=== PATIENT | female | born 1985 | race Caucasian/White ===

== ENCOUNTER 2021-08-07 21:20 | Inpatient (IN) ==
[2021-08-07] MEDS ORDERED: LACTATED RINGER'S 1,000 ML IV PRN (21:34)
[2021-08-07] MEDS ORDERED: OXYTOCIN 30 UNITS/500 ML BAG IV PRN (21:34)
[2021-08-07 21:59] LABS: Hematocrit (blood only) 36.5 % (37-47); Hemoglobin 12.9 g/dL (12.0-16.0); Mean Corpuscular Hemoglobin 31.7 pg (25-34); Mean Corpuscular Hgb Conc 35.3 g/dL (32-36); Mean Corpuscular Volume 89.7 fL (80-100); Mean Platelet Volume 11.5 fL (7.4-10.4); Platelet Count 183 K/uL (130-400); RDW Coefficient of Variation 13.4 % (11.5-14.5); RDW Standard Deviation 43.9 fL (36.4-46.3); Red Blood Count 4.07 M/uL (4.2-5.4); White Blood Count 14.67 K/uL (4.8-10.8)
[2021-08-07] MEDS ORDERED: CALCIUM CARBONATE 500 MG CHEWABLE TAB PO PRN (22:50)
[2021-08-07] MEDS ORDERED: ONDANSETRON INJ 2 MG/ML 2 ML VIAL IV PRN (22:50)
[2021-08-07] MEDS ORDERED: DINOPROSTONE 10 MG INSERT PV ONE (22:50)
--- NOTE | 2021-08-07 22:54 | History & Physical Report ---
Date of Service August 07, 2021 Assessment & Plan (1) IUGR (intrauterine growth restriction) affecting care of mother: Plan: 36-year-old -0-1-2 at 37 weeks and 3 days of gestation presenting today for induction of labor at term due to IUGR and elevated SD ratio of lumbrical artery Doppler studies, recommended by maternal- medicine at [facility], Vital signs stable afebrile, heart rate reassuring, GBS negative, History of COVID-19 in March, recovered well and currently negative testing, Cervix unfavorable, Plan to admit, monitor, cervical ripening with Cervidil, Patient understands what to expect during induction and all questions were answered. (2) Advanced maternal age (AMA) in : (3) Medication exposure during first trimester of : (4) COVID-19 affecting , antepartum: Admission and Anticipated Discharge Date Admission Date: August 07, 2021 History of Present Illness Primary Care Provider: PT DECLINED Patient is a 36-year-old -0-1-2 at 37 weeks and 3 days of gestation who was sent from [facility] in [place] after her visit to maternal- medicine for growth ultrasound and Doppler studies due to ongoing IUGR. It was noted that SD ratio of the umbilical artery was elevated and recommended ashtyn ction of labor at term either tonight or tomorrow morning. Patient wanted to go home eat take shower and prepare her back and then come tonight. Patient has no complaints. She denies contractions, leakage of fluid, vaginal bleeding. She reports good movements. Patient denies headache, change in her vision, nausea vomiting, epigastric or right upper quadrant pain or leg pain. Her has been complicated by, 1. Advanced maternal age 2. Late care, 3. medication exposure during first trimester, use doxycycline for a month for Lyme disease, 4. COVID-19 affecting , positive on March, covered well at home. 5. IUGR as above, 6. Smoked cigarettes until 17 weeks Allergies Allergy/AdvReac Type Severity Reaction Status Date / Time Sulfa (Sulfonamide Allergy Unknown Rash Verified 08/07/21 21:39 Antibiotics) Home Medications Medication Instructions Recorded Confirmed Type omeprazole 40 mg capsule,delayed 40 mg PO DAILY #30 cap 09/26/19 08/07/21 Rx release vits no.124-ferrous fum 1 tab PO DAILY 08/07/21 08/07/21 History 27 mg iron-folic acid 800 mcg tablet ( Vitamin) Patient History Medical History (Updated 08/07/21 @ 22:59 by Yariel Castro MD) GERD (gastroesophageal reflux disease) Lyme disease 2020 No significant past medical history Pain, dental Surgical History History of oral surgery Social History Smoking Status: Former smoker Tobacco Type: Cigarettes Cigarettes Per Day: 20; Smoking End Date: with + test; Second Hand Exposure: No; Hx Alcohol Use: No Hx Substance Use: No Preferred Language: Finnish Communication Ability: Effective Medical Office Receptionist Required: No Beliefs That Will Affect Care: None marital status: Single Current Living Situation: Family Current Living Situation Comment: 17 year old and 14 year old daughters Other Information That Helps Us Care for You: No Feels Safe at Home: Yes Safety Concerns: Feels Safe At This Time Assistive Devices: Contacts, Denture - Upper and Denture - Lower OB History Full-term STDs in 2004 and 2007, no complications History of 1 [employer] History Denies any history of STDs, denies history of herpes, chlamydia, gonorrhea Review of Systems as per Subjective / HPI Physical Exam Constitutional: WD/WN, vitals as above well developed, well nourished and + thin Comfortable, not in acute distress Genitourinary: normal external appearance OB Exam Abdomen: + vertex Manual OB Exam: + cervical dilation fingertip, + cervical effacement 40% and + station -2 (Cervix is firm) OB Exam Monitor Tracing: + external uterine monitor used and + category I Results & Data ([facility]) Vital Signs (Past 12 Hours) Vital Signs Temp Pulse Resp BP 08/07/21 21:55 36.8 C 82 18 130/81 08/07/21 21:49 36.8 C 82 18 130/81 08/07/21 21:34 92 H 139/96 Laboratory Results Lab Results 08/07/21 08/07/21 Range/Units 21:41 21:46 WBC 14.67 H (4.8-10.8) K/uL RBC 4.07 L (4.2-5.4) M/uL Hgb 12.9 (12.0-16.0) g/dL Hct 36.5 L (37-47) % MCV 89.7 (80-100) fL MCH 31.7 (25-34) pg MCHC 35.3 (32-36) g/dL RDW Std Deviation 43.9 (36.4-46.3) fL RDW Coeff of Alfred 13.4 (11.5-14.5) % Plt Count 183 (130-400) K/uL MPV 11.5 H (7.4-10.4) fL SARS-CoV-2, RNA, NAAT NEGATIVE (NEGATIVE)
[2021-08-08] MEDS ORDERED: BUTORPHANOL TARTRATE 1 MG/ML VIAL IV PRN (00:37)
--- NOTE | 2021-08-08 12:22 | Labor Progress Brief Note ---
Date of Service August 08, 2021 Assessment & Plan (1) IUGR (intrauterine growth restriction) affecting care of mother: Plan: Induction for IUGR Day #2 Cervidil removed after 24 hrs FHR; CAT1 Ctx. Mild and irregular VE; CL/50/post Plan feed PT Cytotec Admission and Anticipated Discharge Date Admission Date: August 07, 2021 Results & Data ([facility]) Vital Signs (Past 12 Hours) Vital Signs Temp Pulse Resp BP 08/08/21 07:51 36.7 C 65 18 136/77 08/08/21 07:45 65 136/77 08/08/21 07:44 36.7 C 18 08/08/21 05:32 36.8 C 68 16 133/76 08/08/21 01:06 66 120/75 08/08/21 01:05 36.7 C 16
[2021-08-08] MEDS: miSOPROStoL 50 MCG TAB PO SCH ×2 (13:20→17:43)
[2021-08-08] MEDS ORDERED: DINOPROSTONE 10 MG INSERT PV ONE (21:55)
[2021-08-08] MEDS ORDERED: DIPHTHERIA/TETANUS/PERTUSSIS 0.5 ML SYR/VIAL IM ONE (22:48)
[2021-08-08] MEDS ORDERED: IBUPROFEN 600 MG TAB PO PRN (22:48)
[2021-08-08] MEDS ORDERED: BENZOCAINE 20% AER SPR 82.5 GM CAN EXT PRN (22:48)
[2021-08-08] MEDS ORDERED: ACETAMINOPHEN 325 MG TAB PO PRN (22:48)
[2021-08-08] MEDS ORDERED: bisacodyL 10 MG SUPP PR PRN (22:48)
[2021-08-08] MEDS ORDERED: HYDROCORTISONE ACETATE 25 MG SUPP PR PRN (22:48)
[2021-08-08] MEDS ORDERED: OXYTOCIN 30 UNITS/500 ML BAG IV PRN (22:48)
[2021-08-08] MEDS ORDERED: miSOPROStoL 200 MCG TAB PR ONE (22:48)
--- NOTE | 2021-08-08 23:11 | Obstetrical Progress Note ---
Date of Service August 08, 2021 Assessment & Plan (1) IUGR (intrauterine growth restriction) affecting care of mother: Plan: Pt doing well FHR; CAT1 Ctx. Minimal VE; Cl/post Plan Cervidil placed in vagina Admission and Anticipated Discharge Date Admission Date: August 07, 2021 Results & Data ([facility]) Vital Signs (Past 12 Hours) Vital Signs Temp Pulse Resp BP 08/08/21 23:03 61 143/83 H 08/08/21 19:21 36.7 C 73 18 147/90 H 08/08/21 16:15 36.6 C 68 18 133/87 08/08/21 13:18 36.6 C 80 18 131/85
[2021-08-09] MEDS ORDERED: DOCUSATE SODIUM 100 MG CAP PO SCH (08:00)
[2021-08-09] MEDS ORDERED: PRENATAL VITAMIN 1 TAB PO SCH (08:00)
--- NOTE | 2021-08-09 11:38 | Labor Progress Brief Note ---
Date of Service August 09, 2021 Assessment & Plan Admission and Anticipated Discharge Date Admission Date: August 07, 2021 Physical Exam Genitourinary: Manual OB Exam: + cervical dilation fingertip, + cervical effacement 50% and + station high OB Exam Monitor Tracing: + external FHT monitor used, + external uterine monitor used, + category I and + normal FHT variability Cervidil pulled out will start Cytotec sublingually Results & Data ([facility]) Vital Signs (Past 12 Hours) Vital Signs Temp Pulse Resp BP 08/09/21 07:49 36.6 C 64 18 125/82 08/09/21 07:48 36.6 C 18 08/09/21 03:03 36.9 C 62 18 136/90
[2021-08-09] MEDS: miSOPROStoL 50 MCG TAB SL SCH ×4 (14:28→23:58)
[2021-08-09] MEDS ORDERED: bisacodyL 5 MG TABEC PO SCH (20:00)
[2021-08-10] MEDS: miSOPROStoL 50 MCG TAB SL SCH ×4 (04:01→17:41)
[2021-08-10] MEDS ORDERED: OXYTOCIN 30 UNITS/500 ML BAG IV PRN ×2 (07:21→19:24)
[2021-08-10] MEDS ORDERED: FLUCONAZOLE 50 MG TAB PO ONE (08:04)
--- NOTE | 2021-08-10 08:08 | Obstetrical Progress Note ---
Date of Service August 10, 2021 Assessment & Plan Admission and Anticipated Discharge Date Admission Date: August 07, 2021 Subjective Patient is sen and examined IOL for IUGR since 08/07/ Received 2 Cervidils and 6 PO Cytotec Feels mild ctxs VE; / 50%/ -2 Discussed options of Dominique balloon and Oxytocin at the same time, she agreed Declined breakfast and wanted to proceed. Spec: white d/c suggesting leanne, cleaned with BETADINE, Dominique was inserted, 35 ml was infused and it was attached to her tight with tension FHR categ I Continue to monitor Results & Data ([facility]) Vital Signs (Past 12 Hours) Vital Signs Temp Pulse Resp BP 08/10/21 07:41 68 137/92 08/10/21 07:27 67 137/86 08/10/21 07:09 75 138/89 08/10/21 07:02 67 139/86 08/10/21 07:01 36.6 C 20 08/10/21 03:14 36.6 C 61 18 111/67 08/09/21 23:06 36.8 C 58 L 16 104/58 L
[2021-08-10 08:25] LABS: Hematocrit (blood only) 39.5 % (37-47); Hemoglobin 14.4 g/dL (12.0-16.0); Mean Corpuscular Hemoglobin 32.9 pg (25-34); Mean Corpuscular Hgb Conc 36.5 g/dL (32-36); Mean Corpuscular Volume 90.2 fL (80-100); Mean Platelet Volume 11.6 fL (7.4-10.4); Platelet Count 160 K/uL (130-400); RDW Coefficient of Variation 13.5 % (11.5-14.5); RDW Standard Deviation 44.7 fL (36.4-46.3); Red Blood Count 4.38 M/uL (4.2-5.4); White Blood Count 12.19 K/uL (4.8-10.8)
[2021-08-10 08:41] LABS: Albumin Globulin Ratio 1.1 (0.9-2); Albumin Level 3.3 gm/dl (3.4-5.0); BUN Creatinine Ratio 16.7 (10-20); Bilirubin,Total 0.4 mg/dl (0.2-1.0); Calcium 8.8 mg/dl (8.5-10.1); Creatinine Clr Calc Pharmacy 144.9 ml/min; Est GFR (African American) 146.3 ml/min; Est GFR (Non-African American) 126.2 ml/min; Potassium 3.8 mmol/L (3.5-5.1); Total Protein 6.3 gm/dl (6.0-8.3)
[2021-08-10 09:00] LABS: Basophils # (auto) 0.02 K/uL (0-0.2); Basophils % (auto) 0.2 %; Eosinophils # (auto) 0.14 K/uL (0-0.5); Eosinophils % (auto) 1.1 %; Immature Granulocytes # (auto) 0.03 K/uL (0.00-0.02); Immature Granulocytes % (auto) 0.2 %; Lymphocytes # (auto) 2.55 K/uL (1.2-3.4); Lymphocytes % (auto) 20.9 %; Monocytes # (auto) 0.72 K/uL (0.11-0.59); Monocytes % (auto) 5.9 %; Neutrophils # (auto) 8.73 K/uL (1.4-6.5); Neutrophils % (auto) 71.7 %
[2021-08-10 10:10] LABS: Appearance Urine Clear (Clear); Bilirubin Urine Negative (Negative); Blood Urine Negative (Negative); Color Urine Yellow; Glucose Urine UA Negative (Negative); Ketones Urine Negative (Negative); Leukocyte Esterase Urine Negative (Negative); Nitrite Urine Negative (Negative); Protein Urine Negative (Negative); Specific Gravity Urine 1.014 (1.000-1.030); Urobilinogen Urine Negative (Negative)
[2021-08-10] MEDS ORDERED: SODIUM CHLORIDE 0.9% INJ 10 ML VIAL ONE (10:36)
[2021-08-10] MEDS ORDERED: ePHEDrine sulfate 50 MG/ML AMP ONE (10:36)
[2021-08-10] MEDS ORDERED: fentaNYL citrate 100 MCG/2 ML VIAL ONE (10:36)
[2021-08-10] MEDS ORDERED: BUPIVACAINE 0.25% 30 ML VIAL ONE (10:36)
[2021-08-10] MEDS ORDERED: fentaNYL 2MCG/ML ROPIVACAINE 1.25MG/ML 100 ML BAG EPI ONE (10:38)
--- NOTE | 2021-08-10 10:53 | Anesthesiology Consultation ---
Date of Service August 10, 2021 Assessment & Plan Chart Review Chart Review: Acceptable Risk for Surgery and Patient NOT seen in Pre Admission Testing Consults Requested none ASA ASA2 Proposed Anesthesia Anesthesia Type: Labor Epidural and CSE History Height/Weight Height: 5 ft 3 in Weight: 63.049 kg Allergies Allergy/AdvReac Type Severity Reaction Status Date / Time Sulfa (Sulfonamide Allergy Unknown Rash Verified 08/07/21 21:39 Antibiotics) Medications Home Medications Medication Instructions Recorded Confirmed Last Taken omeprazole 40 mg capsule,delayed 40 mg PO DAILY #30 cap 09/26/19 08/07/21 08/07/21 09:00 release vits no.124-ferrous fum 1 tab PO DAILY 08/07/21 08/07/21 08/07/21 09:00 27 mg iron-folic acid 800 mcg tablet ( Vitamin) Active Medications Generic Name Dose Route Start Last Admin Trade Name Freq PRN Reason Stop Dose Admin Butorphanol Tartrate 1 mg 08/08/21 00:37 08/10/21 09:55 Butorphanol Tartrate 1 Mg/Ml Vial IV 09/07/21 00:36 1 mg Q3HWA PRN Administration Pain Misoprostol 50 mcg 08/09/21 12:00 08/10/21 08:21 Misoprostol 50 Mcg Tab SL 09/08/21 11:59 Not Given Q4 VALDEMAR Past Medical History Medical History GERD (gastroesophageal reflux disease) Lyme disease 2020 No significant past medical history Pain, dental Exercise / Class Metabolic Activity II 4-5 Yardwork/Stairs/Walk up hill Past Surgical History Surgical History History of oral surgery Past Anesthesia History No Hx of Anesthesia Complications and No Family Hx of Anesthesia Complications History of PONV No Hx of PONV and No Hx of Motion Sickness Social History Smoking Status: Former smoker tobacco type: cigarettes Smoking cigarettes per day: 20 Smoking End Date: with + test Hx Alcohol Use: No Hx Substance Use: No substance use type: does not use Physical Exam Vital Signs Last Vital Signs Temp 36.6 C 08/10/21 07:01 Pulse 59 L 08/10/21 10:40 Resp 20 08/10/21 07:01 BP 152/98 H 08/10/21 10:40 Testing Laboratory Results 08/10/21 08:08 08/10/21 08:08 Urine Color Yellow 08/10/21 Unknown Urine Appearance Clear (Clear) 08/10/21 Unknown Urine pH 8.0 (4.5-7.5) H 08/10/21 Unknown Ur Specific [place] 1.014 (1.000-1.030) 08/10/21 Unknown Urine Protein Negative (Negative) 08/10/21 Unknown Urine Glucose (UA) Negative (Negative) 08/10/21 Unknown Urine Ketones Negative (Negative) 08/10/21 Unknown Urine Nitrite Negative (Negative) 08/10/21 Unknown Ur Leukocyte Esterase Negative (Negative) 08/10/21 Unknown
[2021-08-10] MEDS ORDERED: diphenhydrAMINE 50 MG/ML VIAL IV PRN (11:24)
[2021-08-10] MEDS ORDERED: NALBUPHINE HCL INJ 10 MG/ML AMP IV PRN (11:24)
[2021-08-10] MEDS ORDERED: fentaNYL 2MCG/ML ROPIVACAINE 1.25MG/ML 100 ML BAG EPI PRN (11:24)
[2021-08-10] MEDS ORDERED: PROMETHAZINE HCL 25 MG in SODIUM CHLORIDE 0.9% 50 ML IV PRN (11:24)
[2021-08-10] MEDS ORDERED: NALOXONE HCL 1 MG in SODIUM CHLORIDE 0.9% 1000ML 1,000 ML IV PRN (11:24)
[2021-08-10] MEDS ORDERED: ONDANSETRON INJ 2 MG/ML 2 ML VIAL IV PRN (11:24)
[2021-08-10] MEDS ORDERED: ePHEDrine sulfate 50 MG/ML AMP IV PRN (11:24)
[2021-08-10] MEDS ORDERED: NALOXONE HCL 0.4 MG/1 ML VIAL/CARP IV PRN (11:24)
--- NOTE | 2021-08-10 15:51 | Obstetrical Progress Note ---
Date of Service August 10, 2021 Assessment & Plan Admission and Anticipated Discharge Date Admission Date: August 07, 2021 Subjective Patient is reevaluated. She received epidural for pain and now comfortable. Vi blaire signs stable afebrile, heart rate reassuring. Vaginal exam, drained 900 mL of clear urine, Dominique balloon was at the cervical os removed and cervix is 4 cm dilated, 40% effaced, head at -2 station, AROM, clear fluid was obtained. Pitocin is at 10 mIU/min, toco with contractions every 2 to 4 minutes. Continue to monitor closely. Results & Data ([facility]) Vital Signs (Past 12 Hours) Vital Signs Temp Pulse Resp BP Pulse Ox 08/10/21 15:45 62 124/68 99 08/10/21 15:40 74 100 08/10/21 15:35 62 100 08/10/21 15:30 57 L 100 08/10/21 15:29 63 141/78 H 08/10/21 15:25 58 L 99 08/10/21 15:20 59 L 100 08/10/21 15:15 67 100 08/10/21 15:14 59 L 113/76 92 08/10/21 15:10 60 99 08/10/21 15:05 64 100 08/10/21 15:00 76 100 08/10/21 14:57 70 92 08/10/21 14:55 72 100 08/10/21 14:50 60 100 08/10/21 14:45 75 139/73 100 08/10/21 14:40 59 L 99 08/10/21 14:35 62 99 08/10/21 14:30 60 127/79 100 08/10/21 14:25 58 L 100 08/10/21 14:20 59 L 99 08/10/21 14:15 59 L 116/76 08/10/21 14:10 59 L 99 08/10/21 14:05 56 L 99 08/10/21 14:00 57 L 116/74 99 08/10/21 13:55 54 L 99 08/10/21 13:50 54 L 98 08/10/21 13:45 59 L 117/74 98 08/10/21 13:40 58 L 98 08/10/21 13:35 55 L 99 08/10/21 13:31 55 L 116/74 08/10/21 13:30 56 L 99 08/10/21 13:25 54 L 98 08/10/21 13:20 66 98 08/10/21 13:15 54 L 99 08/10/21 13:14 56 L 114/72 08/10/21 13:10 56 L 99 08/10/21 13:05 59 L 99 08/10/21 13:00 59 L 99 08/10/21 12:59 56 L 121/74 08/10/21 12:55 54 L 98 08/10/21 12:50 56 L 98 08/10/21 12:45 56 L 98 08/10/21 12:44 59 L 117/75 08/10/21 12:40 67 98 08/10/21 12:35 62 98 08/10/21 12:30 64 98 08/10/21 12:29 61 116/72 08/10/21 12:25 64 98 08/10/21 12:20 63 99 08/10/21 12:15 68 118/80 99 08/10/21 12:10 66 96 08/10/21 12:05 64 97 08/10/21 12:00 65 97 08/10/21 11:55 62 112/74 98 08/10/21 11:50 66 114/77 98 08/10/21 11:45 64 117/79 98 08/10/21 11:40 61 98 08/10/21 11:39 66 114/71 08/10/21 11:35 66 125/78 98 08/10/21 11:30 70 98 08/10/21 11:28 70 124/75 08/10/21 11:26 80 117/80 08/10/21 11:25 77 127/83 99 08/10/21 11:22 92 H 118/79 08/10/21 11:20 79 119/79 100 08/10/21 11:19 75 131/90 08/10/21 11:17 63 150/96 H 08/10/21 11:15 60 159/100 H 99 08/10/21 11:10 68 100 08/10/21 11:09 69 159/97 H 08/10/21 11:05 69 100 08/10/21 11:00 59 L 100 08/10/21 10:56 63 155/90 H 08/10/21 10:55 65 98 08/10/21 10:40 59 L 152/98 H 08/10/21 10:25 57 L 148/93 H 08/10/21 10:10 60 152/85 H 08/10/21 09:53 57 L 165/98 H 08/10/21 07:41 68 137/92 08/10/21 07:27 67 137/86 08/10/21 07:09 75 138/89 08/10/21 07:02 67 139/86 08/10/21 07:01 36.6 C 20
--- NOTE | 2021-08-10 17:56 | Obstetrical Progress Note ---
Date of Service August 10, 2021 Assessment & Plan Admission and Anticipated Discharge Date Admission Date: August 07, 2021 Subjective FHR has been having early decels Patient is comfortable, no pain nor pressure VE; 5/ 70%/ -2, small caput Continue to monitor closely Results & Data ([facility]) Vital Signs (Past 12 Hours) Vital Signs Temp Pulse Resp BP Pulse Ox 08/10/21 17:50 54 L 97 08/10/21 17:45 65 107/59 L 98 08/10/21 17:40 55 L 98 08/10/21 17:38 65 93 08/10/21 17:35 54 L 98 08/10/21 17:30 58 L 98 08/10/21 17:29 60 123/76 08/10/21 17:25 62 99 08/10/21 17:20 61 98 08/10/21 17:15 75 95 08/10/21 17:14 61 117/76 08/10/21 17:10 61 97 08/10/21 17:05 61 98 08/10/21 17:00 36.9 C 63 20 99 08/10/21 16:59 56 L 125/66 08/10/21 16:55 61 99 08/10/21 16:50 63 98 08/10/21 16:45 66 99 08/10/21 16:44 64 130/75 08/10/21 16:40 63 99 08/10/21 16:35 55 L 100 08/10/21 16:31 68 92 08/10/21 16:30 61 100 08/10/21 16:29 58 L 146/82 H 08/10/21 16:25 60 100 08/10/21 16:20 59 L 100 08/10/21 16:15 54 L 100 08/10/21 16:14 70 124/84 08/10/21 16:10 66 100 08/10/21 16:05 59 L 100 08/10/21 16:00 67 135/80 100 08/10/21 15:55 69 100 08/10/21 15:50 55 L 100 08/10/21 15:45 62 124/68 99 08/10/21 15:40 74 100 08/10/21 15:35 62 100 08/10/21 15:30 57 L 100 08/10/21 15:29 36.9 C 63 20 141/78 H 08/10/21 15:25 58 L 99 08/10/21 15:20 59 L 100 08/10/21 15:15 67 100 08/10/21 15:14 59 L 113/76 92 08/10/21 15:10 60 99 08/10/21 15:05 64 100 08/10/21 15:00 76 100 08/10/21 14:57 70 92 08/10/21 14:55 72 100 08/10/21 14:50 60 100 08/10/21 14:45 75 139/73 100 08/10/21 14:40 59 L 99 08/10/21 14:35 62 99 08/10/21 14:30 60 127/79 100 08/10/21 14:25 58 L 100 08/10/21 14:20 59 L 99 08/10/21 14:15 59 L 116/76 08/10/21 14:10 59 L 99 08/10/21 14:05 56 L 99 08/10/21 14:00 57 L 116/74 99 08/10/21 13:55 54 L 99 08/10/21 13:50 54 L 98 08/10/21 13:45 59 L 117/74 98 08/10/21 13:40 58 L 98 08/10/21 13:35 55 L 99 08/10/21 13:31 55 L 116/74 08/10/21 13:30 56 L 99 08/10/21 13:25 54 L 98 08/10/21 13:20 66 98 08/10/21 13:15 54 L 99 08/10/21 13:14 56 L 114/72 08/10/21 13:10 56 L 99 08/10/21 13:05 59 L 99 08/10/21 13:00 59 L 99 08/10/21 12:59 56 L 121/74 08/10/21 12:55 54 L 98 08/10/21 12:50 56 L 98 08/10/21 12:45 56 L 98 08/10/21 12:44 59 L 117/75 08/10/21 12:40 67 98 08/10/21 12:35 62 98 08/10/21 12:30 64 98 08/10/21 12:29 61 116/72 08/10/21 12:25 64 98 08/10/21 12:20 63 99 08/10/21 12:15 68 118/80 99 08/10/21 12:10 66 96 08/10/21 12:05 64 97 08/10/21 12:00 65 97 08/10/21 11:55 62 112/74 98 08/10/21 11:50 66 114/77 98 08/10/21 11:45 64 117/79 98 08/10/21 11:40 61 98 08/10/21 11:39 66 114/71 08/10/21 11:35 66 125/78 98 08/10/21 11:30 70 98 08/10/21 11:28 70 124/75 08/10/21 11:26 80 117/80 08/10/21 11:25 77 127/83 99 08/10/21 11:22 92 H 118/79 08/10/21 11:20 79 119/79 100 08/10/21 11:19 75 131/90 08/10/21 11:17 63 150/96 H 08/10/21 11:15 60 159/100 H 99 08/10/21 11:10 68 100 08/10/21 11:09 69 159/97 H 08/10/21 11:05 69 100 08/10/21 11:00 59 L 100 08/10/21 10:56 63 155/90 H 08/10/21 10:55 65 98 08/10/21 10:40 59 L 152/98 H 08/10/21 10:25 57 L 148/93 H 08/10/21 10:10 60 152/85 H 08/10/21 09:53 57 L 165/98 H 08/10/21 07:41 68 137/92 08/10/21 07:27 67 137/86 08/10/21 07:09 75 138/89 08/10/21 07:02 67 139/86 08/10/21 07:01 36.6 C 20
--- NOTE | 2021-08-10 19:20 | Delivery Summary ---
Vaginal Delivery Summary Date of Service August 10, 2021 Vaginal Delivery Summary Patient was found to be fully dilated and desire to push she pushed through 2 contractions and deliver the head without difficulty. There was a nuchal cord around the neck x1 which was reduced. The shoulders were treated with delivered with minimal traction and they was handed off to the mother where mouth and nose were suctioned, cord was clamped times and cut at 4-minute delay. Baby was vigorously moving and crying. Then the center was found to be in the vagina, delivered spontaneously as intact and complete. Uterus was explored and found to be empty, lower segment was cleared of all clots and debris's and EBL was 100 mL. Next the vagina and perineum were checked for lacerations, there were first-degree lacerations on the left labia and left hymenal ring. Those were repaired with 3-0 Vicryl on SH needle with [id number] stitches x2. Excellent hemostasis was achieved. The mom and baby tolerated procedure well. Sponge needle instrument counts was correct x2. The baby was a viable male infant. Apgars were 8/9 and weight is pending. No complications happened and I was present during whole procedure.
[2021-08-10] MEDS ORDERED: BENZOCAINE 20% AER SPR 82.5 GM CAN EXT PRN (19:24)
[2021-08-10] MEDS ORDERED: DIPHTHERIA/TETANUS/PERTUSSIS 0.5 ML SYR/VIAL IM ONE (19:24)
[2021-08-10] MEDS ORDERED: MEASLES, MUMPS & RUBELLA VIRUS VIAL SQ ONE (19:24)
[2021-08-10] MEDS ORDERED: oxyCODONE/ACETAMINOPHEN 5mg/325mg TAB PO PRN (19:24)
[2021-08-10] MEDS ORDERED: HYDROCORTISONE ACETATE 25 MG SUPP PR PRN (19:24)
[2021-08-10] MEDS ORDERED: bisacodyL 10 MG SUPP PR PRN (19:24)
--- NOTE | 2021-08-10 21:25 | Anesthesia Procedure Note ---
Date of Service August 10, 2021 Anesthesia Post Epidural Note Vital Signs Vital Signs: Temp Pulse Resp BP Pulse Ox 36.9 C 79 20 126/79 92 08/10/21 17:00 08/10/21 21:14 08/10/21 17:00 08/10/21 21:14 08/10/21 19:10 Pain Intensity Lower Abdomen: Pain Intensity: 3 Notes Mental Status: alert / awake / arousable and participated in evaluation Patient Amnestic to Procedure: No Nausea / Vomiting: adequately controlled Pain: adequately controlled Airway Patency, RR, SpO2: stable & adequate BP & HR: stable & adequate Hydration State: stable & adequate Neuraxial Anesthesia: was administered and sensory block resolved Anesthetic Complications: no major complications apparent and Pt Satisfied with anesthetic care Epidural: Removed without complications and With tip intact
[2021-08-10] MEDS: IBUPROFEN 600 MG TAB PO PRN (23:47)
[2021-08-11 06:35] LABS: Hemoglobin 12.3 g/dL (12.0-16.0); Mean Corpuscular Hemoglobin 31.1 pg (25-34); Mean Corpuscular Hgb Conc 34.2 g/dL (32-36); Mean Corpuscular Volume 90.9 fL (80-100); Mean Platelet Volume 11.7 fL (7.4-10.4); Platelet Count 141 K/uL (130-400); RDW Coefficient of Variation 13.4 % (11.5-14.5); RDW Standard Deviation 44.2 fL (36.4-46.3); Red Blood Count 3.96 M/uL (4.2-5.4); White Blood Count 14.82 K/uL (4.8-10.8)
[2021-08-11] MEDS: PRENATAL VITAMIN 1 TAB PO SCH (08:19)
[2021-08-11] MEDS: DOCUSATE SODIUM 100 MG CAP PO SCH ×3 (08:19→20:09)
[2021-08-11] MEDS: FERROUS SULFATE 325 MG TAB PO SCH (08:19)
[2021-08-11] MEDS: IBUPROFEN 600 MG TAB PO PRN ×2 (08:19→20:07)
--- NOTE | 2021-08-11 09:59 | Obstetrical Progress Note ---
Date of Service August 11, 2021 Assessment & Plan (1) Normal course: PPD #1 pt doing well anticipate disch tomorrow Results & Data ([facility]) Vital Signs (Past 12 Hours) Vital Signs Temp Pulse Resp BP Pulse Ox 08/11/21 03:30 36.8 C 65 16 118/64 97 08/11/21 01:00 36.7 C 81 16 131/68 08/10/21 22:06 36.8 C 88 20 125/80
[2021-08-11] MEDS ORDERED: bisacodyL 5 MG TABEC PO SCH (20:00)
[2021-08-11] MEDS: ACETAMINOPHEN 325 MG TAB PO PRN (21:05)
[2021-08-12] MEDS: ACETAMINOPHEN 325 MG TAB PO PRN (05:58)
[2021-08-12 07:04] LABS: Hematocrit (blood only) 38.7 % (37-47); Hemoglobin 13.5 g/dL (12.0-16.0)
--- NOTE | 2021-08-12 08:21 | Obstetrical Progress Note ---
Date of Service August 12, 2021 Assessment & Plan (1) Normal course: Pt doing well no complaints d/c home with instrcutions Results & Data ([facility]) Vital Signs (Past 12 Hours) Vital Signs Temp Pulse Resp BP Pulse Ox 08/11/21 23:20 36.9 C 70 16 117/73 97
[2021-08-12] MEDS: DOCUSATE SODIUM 100 MG CAP PO SCH (09:10)
[2021-08-12] MEDS: FERROUS SULFATE 325 MG TAB PO SCH (09:10)
[2021-08-12] MEDS: PRENATAL VITAMIN 1 TAB PO SCH (09:10)
== END 2021-08-12 12:10 | disposition home or self-care (01) | DRG 807 ==
LOC: 4S1 21:20 → 4E2 08-10 21:43